=== PATIENT | female | born 1965 | race Caucasian/White ===

== ENCOUNTER 2020-08-01 08:16 | Outpatient (CLI) | payer MEDICARE, MEDICAID ==
[2020-08-01] VITALS (7 sets, daily range): BP systolic 110–148; BP diastolic 53–75
[2020-08-01] MEDS ORDERED: FUROSEMIDE 40 MG/4 ML INJ (LASIX) IVP ONE (09:00)
[2020-08-01] MEDS ORDERED: NS IV 500 ML 500 ML IV SCH (09:00)
[2020-08-01] MEDS ORDERED: FUROSEMIDE 40 MG/4 ML INJ (LASIX) ONE (12:05)
== END 2020-08-01 15:45 | disposition home or self-care (01) ==
LOC: SDC 08:16
PROVIDERS: ATTEND Physician Assistant
DX: D64.9 Anemia, unspecified (principal)
CPT/HCPCS: 36430; 86850; 86900; 86901; 86920; P9016